=== PATIENT | male | born 1995 | race Two or more races ===

== ENCOUNTER 2024-12-06 10:27 | Emergency (ER) | payer MEDICAID, OTHER ==
[~2024-12-06] VITALS: Ht 180.3 cm; Wt 79.2 kg
--- NOTE | 2024-12-06 11:03 | ED.PDOC ---
GI ASSESSMENT HPI Comments 29 y.o male presents to the ED for a chief complaint of diffuse abdominal pain with loss of appetite that started 5 days ago and development of nausea this morning. Patient states he quit drinking alcohol 5 days ago, states history of heavy use (8-10 beers/day) for the past 8 years. Patient reports pain is constant and worsens on palpation. Patient denies any constipation, vomiting, diarrhea, fever, chills, sweats, SOB, dysuria, hematuria or bloody stool. Patient mentions history of kidney problem, diagnosed 3-4 years ago but has not followed up with PCP since diagnosis. Patient also reports quitting marijuana use recently. Patient is on naproxen and [place] for a recent foot injury. Chief Complaint: Abdominal Pain Time Seen by MD: 10:52 Reviewed Notes: Nurses Notes, Medications, Allergies Allergies: Coded Allergies: NO KNOWN ALLERGIES (Unverified , 12/06/24) Home Meds Active Scripts Acetaminophen (Tylenol Extra Strength) 500 Mg Tab, 1000 MG PO Q6HP PRN, #30 TAB Prn pain Prov:LOS BARRAGAN MD 12/06/24 Dicyclomine Hcl (BENTYL CAPSULE) 10 Mg Cp, 2 CAP PO Q6HP PRN, #30 CAP 11 Refills Prn abdominal pain Prov:LOS BARRAGAN MD 12/06/24 Metoclopramide Hcl (Reglan) 10 Mg Tab, 10 MG PO QID PRN, #20 TAB Prn nausea or upset stomach Prov:LOS BARRAGAN MD 12/06/24 Metronidazole (Flagyl) 500 Mg Tab, 1 TAB PO TID for 7 Days, #21 TAB Prov:LOS BARRAGAN MD 12/06/24 Ciprofloxacin Hcl (Cipro) 500 Mg Tab, 1 TAB PO BID for 7 Days, #14 TAB Prov:LOS BARRAGAN MD 12/06/24 Information Source: Patient Mode of Arrival: with crutches Timing: Days (5) Duration: Since onset Quality: Aching Vomitus: None Stool: Normal Severity: Moderate Recent: Ingestion of ETOH Recent Hx of: None Pain Location: Diffuse, Suprapubic Modifying Factors: Nothing Associated sign and symptoms: Nausea, Abdominal Pain Past Medical History Past Medical History (Other): kidney problem, recent calcaneal fx Surgical History: Denies all surgeries Family History Family History: Reviewed,noncontributory to illness Social History Smoker: Non-Smoker Alcohol: Heavy Drugs: Denies Drug Use Lives In: Home Constitutional: denies: chills, diaphoresis, fatigue, fever, malaise, sweats, weakness, others EENTM: denies: blurred vision, double vision, ear bleeding, ear discharge, ear drainage, ear pain, ear ringing, eye pain, eye redness, hearing loss, mouth pain, mouth swelling, nasal discharge, nose bleeding, nose congestion, nose pain, photophobia, tearing, throat pain, throat swelling, voice changes, others Respiratory: denies: cough, hemoptysis, orthopnea, SOB at rest, shortness of breath, SOB with excertion, stridor, wheezing, others Cardiovascular: denies: chest pain, dizzy spells, diaphoresis, Dyspnea on exertion, edema, irregular heart beat, left arm pain, lightheadedness, palpitations, PND, syncope, others Gastrointestinal: reports: abdominal pain, nausea, poor appetite; denies: abdomen distended, blood streaked bowels, constipated, diarrhea, dysphagia, difficulty swallowing, hematemesis, melena, poor fluid intake, rectal bleeding, rectal pain, vomiting, others Genitourinary: denies: burning, dysuria, flank pain, frequency, hematuria, incontinence, penile discharge, penile sore, pain, testicle pain, testicle swelling, urgency, others Neurological: denies: dizziness, fainting, headache, left sided numbness, left sided weakness, numbness, paresthesia, pre-existing deficit, right sided numbness, right sided weakness, seizure, speech problems, tingling, tremors, weakness, others Musculoskeletal: denies: back pain, gout, joint pain, joint swelling, muscle pain, muscle stiffness, neck pain, others Integumetry: denies: bruises, change in color, change in hair/nails, dryness, laceration, lesions, lumps, rash, wounds, others Allergic/Immunocompromised: denies: Difficulty Healing, Frequent Infections, Hives, Itching, others Hematologic/Lymphatic: denies: anemia, blood clots, easy bleeding, easy bruising, swollen glands, others Endocrine: denies: excessive hunger, excessive sweating, excessive thirst, excessive urination, flushing, intolerance to cold, intolerance to heat, unexplained weight gain, unexplained weight loss, others Psychiatric: denies: anxiety, bipolar disorder, depression, hopeless, panic disorder, schizophrenia, sleepless, suicidal, others All Other Systems: Reviewed and Negative Physical Exam General Appearance: No Apparent Distress HEENT: Other (Pupils and face symmetric. Moist mucous membranes.) Neck: Full Range of Motion, Normal Inspection Respiratory: Lungs Clear, No Accessory Muscle Use, No Respiratory Distress, Normal Breath Sounds Cardiovascular: No Edema, No JVD, Regular Rate/Rhythm Breast Exam: Deferred Gastrointestinal: Epigastric, LUQ, RUQ, Soft, Tenderness Genitalia: Deferred Pelvic: Deferred Rectal: Deferred Extremities: Normal inspection, Normal range of motion, Non-tender, No pedal edema Neurologic: Alert (Oriented x4), Normal Affect, Normal Mood, Other (Ambulatory.) Cerebellar Function: NOT DONE Reflexes: NOT DONE Skin: Dry, Pallor, Warm Lymphatic: NOT DONE Was a procedure done? Was a procedure done?: No GI differential Dx Differential Diagnosis: Gastritis/PUD, Gastroenteritis, Hepatitis, Inflammatory BD, Ischemic Bowel, Pancreatitis, Dehydration, Drug toxicity, Electrolyte Imbalance, Food Poisoning, Bacterial, Viral, Stress Ulcer X-Ray, Labs, Meds, VS Vital Signs Date Time Temp Pulse Resp B/P (MAP) Pulse Ox O2 Delivery O2 Flow Rate FiO2 12/06/24 12:43 98.0 84 12 139/87 (104) 98 98.0 12/06/24 10:55 Room Air* 0 21 12/06/24 10:37 98.3 78 18 148/96 (113) 97 98.3 Lab Test 12/06/24 11:14 12/06/24 10:56 Range/Units White Blood Count 8.4 4.4-10.8 10^3/uL Red Blood Count 4.88 4.5-5.90 10^6/uL Hemoglobin 15.8 13.5-17.5 g/dL Hematocrit 45.7 41.0-53.0 % Mean Corpuscular Volume 93.7 80.0-100.0 fL Mean Corpuscular Hemoglobin 32.5 H 28.0-32.0 pg Mean Corpuscular Hemoglobin Concent 34.7 32.0-36.0 g/dL Red Cell Distribution Width 12.9 11.8-14.3 % Platelet Count 255 140-450 10^3/uL Mean Platelet Volume 6.7 L 6.9-10.8 fL Neutrophils (%) (Auto) 77.0 37.0-80.0 % Lymphocytes (%) (Auto) 13.4 10.0-50.0 % Monocytes (%) (Auto) 8.0 0.0-12.0 % Eosinophils (%) (Auto) 1.0 0.0-7.0 % Basophils (%) (Auto) 0.6 0.0-2.0 % Neutrophils # (Auto) 6.5 1.6-8.6 10 ^3/uL Lymphocytes # (Auto) 1.1 0.4-5.4 10 ^3/uL Monocytes # (Auto) 0.7 0-1.3 10 ^3/uL Eosinophils # (Auto) 0.1 0-0.8 10 ^3/uL Basophils # (Auto) 0 0-0.2 10 ^3/uL Nucleated Red Blood Cells 0.1 % Sodium Level 139 136-145 mmol/L Potassium Level 4.1 3.5-5.1 mmol/L Chloride Level 103 98-107 mmol/L Carbon Dioxide Level 27 20-31 mmol/L Anion Gap 9 5-15 Blood Urea Nitrogen 22 9-23 mg/dL Creatinine 2.21 H 0.700-1.30 mg/dL Glomerular Filtration Rate Calc 40 >90 mL/min BUN/Creatinine Ratio 10.0 10.0-20.0 Serum Glucose 93 74-106 mg/dL Calcium Level 9.8 8.7-10.4 mg/dL Total Bilirubin 0.7 0.2-1.0 mg/dL Aspartate Amino Transferase (AST) 21 13-40 U/L Alanine Aminotransferase (ALT) 19 7-40 U/L Alkaline Phosphatase 77 46-116 U/L Total Protein 7.3 5.7-8.2 g/dL Albumin 4.8 3.2-4.8 g/dL Lipase 32 12-53 U/L Urine Color Light-yellow Yellow Urine Clarity Clear Clear Urine pH 5.5 5.0-9.0 Urine Specific [place] 1.007 1.001-1.035 Urine Protein Trace H Negative Urine Ketones Negative Negative Urine Blood 1+ H Negative /uL Urine Nitrite Negative Negative Urine Bilirubin Negative Negative Urine Urobilinogen Normal Negative mg/dL Urine Leukocyte Esterase Negative Negative /uL Urine RBC 2 0 - 3 /hpf Urine Microscopic WBC 7 H 0-3 /HPF Urine Squamous Epithelial Cells Few <5 /hpf Urine Bacteria None seen None Seen /hpf Urine Glucose Normal Normal mg/dL Current Medications Medications (Trade) Dose Ordered Sig/Serena Route Start Time Stop Time Status Last Admin Sodium Chloride 1,000 ml @ 1,000 mls/hr Q1H ONCE IV 12/06/24 11:00 12/06/24 11:59 DC 12/06/24 11:57 Ondansetron HCl (Zofran) 4 mg ONCE ONCE IV 12/06/24 11:00 12/06/24 11:30 DC 12/06/24 12:03 Pantoprazole Sodium (Protonix) 40 mg ONCE ONCE IV 12/06/24 11:00 12/06/24 11:30 DC 12/06/24 12:03 Lidocaine HCl (Xylocaine 2% Viscous) 10 ml ONCE ONCE PO 12/06/24 11:00 12/06/24 11:30 DC 12/06/24 12:04 Belladonna Alkaloids/ Phenobarbital ( Elixir) 10 ml ONCE ONCE PO 12/06/24 11:00 12/06/24 11:30 DC 12/06/24 12:03 Al Hydrox/Mg Hydrox/Simethicone (Maalox Plus) 30 ml ONCE ONCE PO 12/06/24 11:00 12/06/24 11:30 DC 12/06/24 12:03 CLINICAL INFORMATION: Upper abdominal pain. Nausea and vomiting. TECHNIQUE: Axial CT images of the abdomen and pelvis were obtained without IV contrast. Coronal and sagittal reformatted images were obtained, reviewed, and stored. Evaluation of the parenchymal organs is limited without IV contrast. Evaluation of the bowel and mesentery is limited without oral contrast. All CT scans at this medical facility are performed using dose modulation techniques as appropriate to a performed exam including the following: Automated exposure cont rol was utilized; adjustment of the MA and/or KV according to patient size; and use of iterative reconstruction technique. CTDIvol = 6.14 mGy DLP = 344.68 mGy-cm COMPARISON: None FINDINGS: Lung bases: Lung bases are clear. Liver: Grossly unremarkable in its noncontrast enhanced appearance. No abnormal density or focal lesion identified. Biliary: No calcified gallstones or biliary ductal dilatation. Spleen: Unremarkable. Pancreas: Grossly unremarkable in its noncontrast enhanced appearance. Adrenal glands: Unremarkable. No mass. Kidneys: No hydronephrosis. No renal or ureteral calculi. Aorta/Vascular: No aneurysm or significant calcification. Retroperitoneum: No mass or lymphadenopathy. Bowel/mesentery: Nonspecific nondilated fluid-filled small bowel loops. No small bowel obstruction. Appendix is visualized and appears unremarkable. Pelvic organs: Grossly unremarkable. Bladder: Mild circumferential thickening of the bladder wall. Abdominal wall: No mass or hernia. Bones: No acute fracture or suspicious intraosseous lesion. IMPRESSION: 1. Mild circumferential thickening of the bladder wall is nonspecific. Correlate clinically to exclude cystitis. 2. Nonspecific nondilated fluid-filled small bowel loops. Findings may be seen with ileus or enteritis in the appropriate clinical setting. No small bowel obstruction. 3. Otherwise, no acute abnormality identified in the abdomen or pelvis. X-Ray, Labs, Meds, VS Comment 29-year-old male with a self-reported history of kidney problem in the past presenting complaining of upper abdominal pain and nausea Vitals remarkable for BP 148/96 Exam remarkable for upper abdominal tenderness to palpation. No rebound or guarding. Nontender to percussion. Rhythm strip independently interpreted by me: Sinus rhythm, rate 78, no ectopy. CT abdomen and pelvis: IMPRESSION: 1. Mild circumferential thickening of the bladder wall is nonspecific. Correlate clinically to exclude cystitis. 2. Nonspecific nondilated fluid-filled small bowel loops. Findings may be seen with ileus or enteritis in the appropriate clinical setting. No small bowel obstruction. 3. Otherwise, no acute abnormality identified in the abdomen or pelvis. CBC unremarkable, comprehensive metabolic panel remarkable for creatinine 2.21, lipase normal, UA positive for protein, blood, RBCs and WBCs Patient treated with the following in the ED: 1 L 0.9 normal saline IV bolus, Protonix 40 mg IV, viscous lidocaine 10 mL, 10 mL, Maalox 30 mL p.o. Rocephin 1 g IV On re-evaluation, symptoms have improved. Vitals were stable. Patient is not actively vomiting. Abdominal exam is benign. Patient appears stable for discharge with close outpatient follow-up with his primary physician. Rx Bentyl, reglan, Tylenol, cipro, flagyl Time of 1ST Reevaluation: 10:59 Reevaluation 1ST: Unchanged Time of 2ND Reevaluation: 12:35 Reevaluation 2ND: Improved Patient Education/Counseling: Diagnosis, Treatment Family Education/Counseling: No Family Present Departure 1 Departure Time of Disposition: 12:35 Impression: Primary Impression: Abdominal pain Qualified Codes: R10.9 - Unspecified abdominal pain Additional Impression: UTI (urinary tract infection) Qualified Codes: N39.0 - Urinary tract infection, site not specified Disposition: HOME / SELF CARE / HOMELESS Condition: Stable Additional Instructions: Blood tests showed your kidney function is abnormal. This will require monitoring by a primary doctor. Your CT scan showed you may have enteritis, slow intestinal movement, and/or a bladder infection. I have prescribed medications to treat these conditions, however you must follow-up with your primary doctor in 1-2 days for re-evaluation. If you do not have a primary doctor, you have been referred to Dr. Augustin. Return to ER for persistent or worsening symptoms. e-Prescriptions Acetaminophen (Tylenol Extra Strength) 500 Mg Tab 1000 MG PO Q6HP PRN, #30 TAB Prn pain Prov: LOS BARRAGAN MD 12/06/24 Dicyclomine Hcl (BENTYL CAPSULE) 10 Mg Cp 2 CAP PO Q6HP PRN, #30 CAP 11 Refills Prn abdominal pain Prov: LOS BARRAGAN MD 12/06/24 Metoclopramide Hcl (Reglan) 10 Mg Tab 10 MG PO QID PRN, #20 TAB Prn nausea or upset stomach Prov: LOS BARRAGAN MD 12/06/24 Metronidazole (Flagyl) 500 Mg Tab 1 TAB PO TID for 7 Days, #21 TAB Prov: LOS BARRAGAN MD 12/06/24 Ciprofloxacin Hcl (Cipro) 500 Mg Tab 1 TAB PO BID for 7 Days, #14 TAB Prov: LOS BARRAGAN MD 12/06/24 Discharged With: Self Critical Care Note Critical Care Time?: No Stability Stability form required: No I personally scribed for LOS BARRAGAN MD ([email or web address]) on 12/06/24 at 11:03. Electronically submitted by Yazmin Barrow ([facility]). I personally scribed for LOS BARRAGAN MD (CALLUM) on 12/06/24 at 11:14. Electronically submitted by Yazmin Barrow ([facility]). I personally scribed for LOS BARRAGAN MD ([email or web address]) on 12/06/24 at 12:06. Electronically submitted by Yazmin Barrow ([facility]). LOS BARRAGAN MD Dec 06, 2024 11:03
[2024-12-06 11:21] LABS: Basophils # (auto) 0 10 ^3/uL (0-0.2); Basophils % (auto) 0.6 % (0.0-2.0); Eosinophils # (auto) 0.1 10 ^3/uL (0-0.8); Hematocrit 45.7 % (41.0-53.0); Hemoglobin 15.8 g/dL (13.5-17.5); Lymphocytes # (auto) 1.1 10 ^3/uL (0.4-5.4); Lymphocytes % (auto) 13.4 % (10.0-50.0); Mean Corpuscular Hemoglobin 32.5 pg (28.0-32.0); Mean Corpuscular Hgb Conc. 34.7 g/dL (32.0-36.0); Mean Corpuscular Volume 93.7 fL (80.0-100.0); Monocytes # (auto) 0.7 10 ^3/uL (0-1.3); Neutrophils # (auto) 6.5 10 ^3/uL (1.6-8.6); Nucleated Red Blood Cells % 0.1 %; Platelet Count (auto) 255 10^3/uL (140-450); Red Blood Cells 4.88 10^6/uL (4.5-5.90); Red Cell Distribution Width 12.9 % (11.8-14.3); White Blood Cell 8.4 10^3/uL (4.4-10.8)
[2024-12-06 11:31] LABS: Urine Bacteria None Seen /hpf (None Seen)
[2024-12-06 11:37] LABS: Urine Blood 1+ /uL (Negative); Urine Clarity Clear (Clear); Urine Color Light-Yellow (Yellow); Urine Protein, UAD TRACE (Negative); Urine Specific Gravity 1.007 (1.001-1.035); Urine Squamous Epithelial Cell FEW /hpf (<5); Urine Urobilinogen Normal (Negative); Urine WBC 7 /HPF (0-3); Urine pH 5.5 (5.0-9.0)
[2024-12-06 11:40] LABS: Alanine Aminotransferase 19 U/L (7-40); Albumin 4.8 g/dL (3.2-4.8); Alkaline Phosphatase 77 U/L (46-116); Anion Gap 9 (5-15); Blood Urea Nitrogen 22 mg/dL (9-23); Calcium 9.8 mg/dL (8.7-10.4); Carbon Dioxide 27 mmol/L (20-31); Chloride 103 mmol/L (98-107); Glucose 93 mg/dL (74-106); Lipase 32 U/L (12-53); Potassium 4.1 mmol/L (3.5-5.1); Sodium 139 mmol/L (136-145); Total Protein 7.3 g/dL (5.7-8.2)
[2024-12-06 11:41] LABS: Bilirubin, Total 0.7 mg/dL (0.2-1.0)
[2024-12-06] MEDS: SODIUM CHLORIDE 0.9% 1,000 ML IV ONE (11:57)
[2024-12-06] MEDS: PANTOPRAZOLE 40 MG/10 ML VIAL INJ IV ONE (12:03)
[2024-12-06] MEDS: ONDANSETRON HCL 4 MG/2 ML VIAL IV ONE (12:03)
[2024-12-06] MEDS: DONNATAL 5ml ORAL Elix (BELLADONNA ALK-PHENOBARB) PO ONE (12:03)
[2024-12-06] MEDS: MAALOX PLUS or MAALOX 30 ML PO ONE (12:03)
[2024-12-06] MEDS: LIDOCAINE VISCOUS 2% 15ML UD PO ONE (12:04)
--- NOTE | 2024-12-06 12:05 | DVH ---
CLINICAL INFORMATION: Upper abdominal pain. Nausea and vomiting. TECHNIQUE: Axial CT images of the abdomen and pelvis were obtained without IV contrast. Coronal and s agittal reformatted images were obtained, reviewed, and stored. Evaluation of the parenchymal organs is limited without IV contrast. Evaluation of the bowel and mesentery is limited without oral contras t. All CT scans at this medical facility are performed using dose modulation techniques as appropriat e to a performed exam including the following: Automated exposure control was utilized; adjustment of the MA and/or KV according to patient size; and use of iterative reconstruction technique. CTDIvol = 6.14 mGy DLP = 344.68 mGy-cm COMPARISON: None FINDINGS: Lung bases: Lung bases are clear. Liver: Grossly unremarkable in its noncontrast enhanced appearance. No abnormal density or focal lesi on identified. Biliary: No calcified gallstones or biliary ductal dilatation. Spleen: Unremarkable. Pancreas: Grossly unremarkable in its noncontrast enhanced appearance. Adrenal glands: Unremarkable. No mass. Kidneys: No hydronephrosis. No renal or ureteral calculi. Aorta/Vascular: No aneurysm or significant calcification. Retroperitoneum: No mass or lymphadenopathy. Bowel/mesentery: Nonspecific nondilated fluid-filled small bowel loops. No small bowel obstruction. A ppendix is visualized and appears unremarkable. Pelvic organs: Grossly unremarkable. Bladder: Mild circumferential thickening of the bladder wall. Abdominal wall: No mass or hernia. Bones: No acute fracture or suspicious intraosseous lesion. IMPRESSION: 1. Mild circumferential thickening of the bladder wall is nonspecific. Correlate clinically to exclu de cystitis. 2. Nonspecific nondilated fluid-filled small bowel loops. Findings may be seen with ileus or enteriti s in the appropriate clinical setting. No small bowel obstruction. 3. Otherwise, no acute abnormality identified in the abdomen or pelvis.
[2024-12-06 12:17] LABS: Aspartate Aminotransferase 21 U/L (13-40)
[2024-12-06] MEDS ORDERED: METR-344 PO (12:41)
[2024-12-06] MEDS ORDERED: METO-281 PO (12:41)
[2024-12-06] MEDS ORDERED: ACET-1304 PO (12:41)
[2024-12-06] MEDS ORDERED: CIPR-173 PO (12:41)
[2024-12-06] MEDS ORDERED: DICY10CA PO (12:41)
[2024-12-06 12:43] VITALS: BP 139/87; PULSE 84; RESP 12; TEMP 98; O2SAT 98
[2024-12-06] MEDS ORDERED: cefTRIAXone 1GM/50ML D5W 50 ML IV ONE (12:45)
== END 2024-12-06 12:50 | disposition home or self-care (01) ==
LOC: ER 10:27
DX: N39.0 Urinary tract infection, site not specified (principal); R10.84 Generalized abdominal pain; R11.2 Nausea with vomiting, unspecified; F10.20 Alcohol dependence, uncomplicated; Y90.9 Presence of alcohol in blood, level not specified; Z79.899 Other long term (current) drug therapy; Z87.898 Personal history of other specified conditions
CPT/HCPCS: 36415; 74176; 80053; 81001; 83690; 85025; 96361; 96374; 96375; 99285; J2405; J2470; J7030